=== PATIENT | male | born 1985 | race Caucasian/White ===

== ENCOUNTER 2017-11-10 17:23 | Emergency (ER) | payer SELFPAY ==
[~2017-11-10] VITALS: Ht 180.3 cm; Wt 68.2 kg
[2017-11-10] MEDS ORDERED: KETOROLAC TROMETHAMINE 30 MG/ML VIAL IVP ONE (19:30)
[2017-11-10 19:34] LABS: BASOPHILS % (AUTO) 1.2 % (0.0-2.0); EOSINOPHILS % (AUTO) 2.9 % (1.0-6.0); HEMATOCRIT 41.2 % (41-53); HEMOGLOBIN 14.2 g/dL (13.5-17.5); LYMPHOCYTES # (AUTO) 2.8 K/uL (1.0-4.8); LYMPHOCYTES % (AUTO) 30.6 % (22.0-44.0); MEAN CORPUSCULAR HEMOGLOBIN 30.2 pg (26.0-34.0); MEAN CORPUSCULAR HGB CONC 34.5 G/dL (31.0-37.0); MEAN CORPUSCULAR VOLUME 88 fL (80-100); MONOCYTES # (AUTO) 0.9 K/uL (0.1-1.0); MONOCYTES % (AUTO) 9.7 % (2.0-9.0); NEUTROPHILS % (AUTO) 55.6 % (40.0-70.0); PLATELET COUNT (AUTO) 181 K/uL (150-450); RED BLOOD CELL COUNT(AUTO) 4.71 MIL/uL (4.50-5.90); RED CELL DISTRIBUTION WIDTH 12.5 % (11.5-14.5)
[2017-11-10 19:50] LABS: ANION GAP 5 mmol/L (8-16); CALCIUM, TOTAL 8.5 mg/dL (8.8-10.5); CARBON DIOXIDE 31 mmol/L (22-29); CHLORIDE 103 mmol/L (98-107); CREATININE 1.26 mg/dL (0.60-1.30); GLOMERULAR FILTR. RATE CALC > 60 mL/min (>60); GLUCOSE,RANDOM 73 mg/dL (70-110); POTASSIUM 4.1 mmol/L (3.5-5.1); SODIUM SERUM 139 mmol/L (136-145); UREA NITROGEN, BLOOD 13 mg/dL (7-18)
[2017-11-10 19:55] LABS: ALANINE AMINOTRANSFERASE 24 U/L (12-78); ALBUMIN 3.1 g/dL (3.4-5.0); ALKALINE PHOSPHATASE 81 U/L (46-116); ASPARTATE AMINOTRANSFERASE 18 U/L (15-37); BILIRUBIN,TOTAL 0.2 mg/dL (0.1-1.0); TOTAL PROTEIN, SERUM 6.5 g/dL (6.4-8.2)
[2017-11-10] MEDS ORDERED: GENTAMICIN SULFATE 160 MG in DEXTROSE 5%-WATER 100 ML IV ONE (20:00)
[2017-11-10] MEDS ORDERED: CefTRIAXone SODIUM 2 GM in DEXTROSE 5%-WATER 20 ML IV ONE (20:00)
[2017-11-10 21:17] VITALS: BP 118/63
== END 2017-11-10 21:19 | disposition home or self-care (01) ==
LOC: EMS 17:25
DX: L03.114 Cellulitis of left upper limb (principal); F15.10 Other stimulant abuse, uncomplicated; F17.210 Nicotine dependence, cigarettes, uncomplicated
CPT/HCPCS: 10160; 36415; 80053; 85025; 96365; 96368; 96375; 99285; 99406; J0696; J1580; J1885; J7060 ×2

== ENCOUNTER 2018-02-01 11:07 | Emergency (ER) | payer MEDICAID ==
[~2018-02-01] VITALS: Ht 177.8 cm; Wt 84.5 kg
[2018-02-01] MEDS ORDERED: IBUPROFEN 800 MG TABLET PO ONE (12:30)
[2018-02-01 13:23] VITALS: BP 123/79
== END 2018-02-01 13:55 | disposition home or self-care (01) ==
LOC: EMS 11:08
DX: J06.9 Acute upper respiratory infection, unspecified (principal); K02.9 Dental caries, unspecified; F17.210 Nicotine dependence, cigarettes, uncomplicated

== ENCOUNTER 2018-12-02 20:24 | Inpatient (IN) | payer MEDICAID, OTHER ==
[~2018-12-02] VITALS: Ht 180.3 cm; Wt 72.3 kg
[2018-12-02 22:23] LABS: EOSINOPHILS % (AUTO) 3.2 % (1.0-6.0); HEMATOCRIT 45.1 % (41-53); HEMOGLOBIN 15.1 g/dL (13.5-17.5); LYMPHOCYTES # (AUTO) 3.5 K/uL (1.0-4.8); LYMPHOCYTES % (AUTO) 47.4 % (22.0-44.0); MEAN CORPUSCULAR HEMOGLOBIN 29.7 pg (26.0-34.0); MEAN CORPUSCULAR HGB CONC 33.5 G/dL (31.0-37.0); MEAN CORPUSCULAR VOLUME 89 fL (80-100); MONOCYTES # (AUTO) 0.7 K/uL (0.1-1.0); MONOCYTES % (AUTO) 8.8 % (2.0-9.0); NEUTROPHILS % (AUTO) 39.6 % (40.0-70.0); PLATELET COUNT (AUTO) 192 K/uL (150-450); RED BLOOD CELL COUNT(AUTO) 5.09 MIL/uL (4.50-5.90); RED CELL DISTRIBUTION WIDTH 13.1 % (11.5-14.5)
[2018-12-02 22:35] LABS: ANION GAP 11 mmol/L (8-16); CALCIUM, TOTAL 9.3 mg/dL (8.8-10.5); CARBON DIOXIDE 27 mmol/L (22-29); CHLORIDE 103 mmol/L (98-107); CREATININE 1.11 mg/dL (0.60-1.30); GLOMERULAR FILTR. RATE CALC > 60 mL/min (>60); GLUCOSE,RANDOM 88 mg/dL (70-110); POTASSIUM 3.9 mmol/L (3.5-5.1); SODIUM SERUM 141 mmol/L (136-145); UREA NITROGEN, BLOOD 18 mg/dL (7-18)
[2018-12-02 22:42] LABS: ALANINE AMINOTRANSFERASE 15 U/L (12-78); ALBUMIN 4.1 g/dL (3.4-5.0); ALKALINE PHOSPHATASE 68 U/L (46-116); ASPARTATE AMINOTRANSFERASE 20 U/L (15-37); BILIRUBIN,TOTAL 0.8 mg/dL (0.1-1.0); TOTAL PROTEIN, SERUM 7.4 g/dL (6.4-8.2)
[2018-12-03] MEDS ORDERED: ZOLPIDEM TARTRATE 10 MG TABLET PO PRN (00:45)
[2018-12-03] MEDS ORDERED: HALOPERIDOL 5 MG TABLET PO PRN (00:45)
[2018-12-03 04:37] VITALS: BP 116/76
[2018-12-03 08:52] VITALS: BP 107/63
[2018-12-03] MEDS: ARIPiprazole 10 MG TABLET PO SCH (12:15)
[2018-12-03 16:00] VITALS: BP 109/65
[2018-12-03] MEDS: LORazepam 2 MG TABLET PO PRN (17:02)
[2018-12-03] MEDS ORDERED: CITALOPRAM HYDROBROMIDE 20 MG TABLET PO SCH (21:00)
[2018-12-04 06:00] VITALS: BP 103/63
[2018-12-04 07:40] LABS: CHOL/HDL RATIO 3.2 (4.2-7.3); FREE T4 (FREE THYROXINE) 0.93 ng/dL (0.76-1.46); THYROID STIMULATING HORMONE 0.31 uIU/mL (0.36-3.74)
[2018-12-04] MEDS: ARIPiprazole 10 MG TABLET PO SCH (08:24)
[2018-12-04 16:21] VITALS: BP 108/62
[2018-12-04] MEDS: CITALOPRAM HYDROBROMIDE 20 MG TABLET PO SCH (20:09)
[2018-12-05 08:39] VITALS: BP 110/73
[2018-12-05] MEDS: ARIPiprazole 10 MG TABLET PO SCH (09:43)
[2018-12-05 16:00] VITALS: BP 106/64
[2018-12-05] MEDS: LORazepam 2 MG TABLET PO PRN (17:23)
[2018-12-05] MEDS: CITALOPRAM HYDROBROMIDE 20 MG TABLET PO SCH (20:58)
[2018-12-06 06:37] VITALS: BP 101/62
[2018-12-06 08:12] VITALS: BP 100/60
[2018-12-06] MEDS: ARIPiprazole 10 MG TABLET PO SCH (08:37)
[2018-12-06] MEDS ORDERED: ARIP10TA8 PO (12:57)
[2018-12-06] MEDS ORDERED: CITA-106 PO (12:58)
== END 2018-12-06 13:55 | disposition home or self-care (01) | DRG 750 ==
LOC: EMS 20:24 → B3A 12-03 01:30
PROVIDERS: ADMIT Psychiatry & Neurology Psychiatry; ATTEND Psychiatry & Neurology Psychiatry
DX: F25.1 Schizoaffective disorder, depressive type (principal); R45.851 Suicidal ideations; Z59.0 Homelessness; F15.90 Other stimulant use, unspecified, uncomplicated; F17.210 Nicotine dependence, cigarettes, uncomplicated; Z91.19 Patient's noncompliance with other medical treatment and regimen; Z91.5 Personal history of self-harm
CPT/HCPCS: 84436; 84439; 84443; 87081; G0480